=== PATIENT | female | born 2000 | race Caucasian/White ===

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

== ENCOUNTER 2024-08-28 11:33 | Emergency (ER) | payer OTHER ==
[~2024-08-28] VITALS: Ht 162.6 cm; Wt 62.6 kg
[2024-08-28] MEDS ORDERED: [UNRECOGNIZED DRUG - CODE] PO (11:57)
[2024-08-28 12:44] VITALS: BP 108/62; O2SAT 99
[2024-08-29] MEDS ORDERED: GABA-532 PO (15:05)
[2024-08-29] MEDS ORDERED: [UNRECOGNIZED DRUG - CODE] MC (15:05)
== END 2024-08-28 13:01 | disposition home or self-care (01) ==
LOC: ER 11:35
DX: G62.9 Polyneuropathy, unspecified (principal); Z79.899 Other long term (current) drug therapy; Z88.7 Allergy status to serum and vaccine
CPT/HCPCS: A4606; A4663

== ENCOUNTER 2024-08-29 12:30 | Emergency (ER) | payer OTHER ==
[~2024-08-29] VITALS: Ht 160 cm; Wt 61.2 kg
[~2024-08-29 12:30] MED LIST changes: +[UNRECOGNIZED DRUG - CODE] PO
[2024-08-29] MEDS ORDERED: [UNRECOGNIZED DRUG - CODE] MC (15:05)
[2024-08-29] MEDS ORDERED: GABA-532 PO (15:05)
[2024-08-29 15:21] VITALS: BP 110/62; O2SAT 99
== END 2024-08-29 15:20 | disposition home or self-care (01) ==
LOC: ER 12:30
DX: G62.9 Polyneuropathy, unspecified (principal); Z79.899 Other long term (current) drug therapy; Z88.7 Allergy status to serum and vaccine
CPT/HCPCS: A4606; A4663